=== PATIENT | female | born 2000 | race Caucasian/White ===

== ENCOUNTER 2021-05-07 11:27 | Emergency (ER) | payer OTHER ==
[~2021-05-07] VITALS: Ht 157.5 cm; Wt 59.0 kg
[2021-05-07] MEDS ORDERED: HALOPERIDOL LACTATE 5 MG/ML VIAL IV STA (11:53)
[2021-05-07] MEDS ORDERED: LACTATED RINGER'S 1,000 ML INJ ONE (12:00)
[2021-05-07] MEDS ORDERED: PROMETHAZINE 12.5MG/ NACL 0.9% 12.5 MG/50 ML BAG IV ONE (12:15)
[2021-05-07] MEDS ORDERED: Morphine 2mg Syringe 2 MG/ML SYR IV ONE (12:15)
[2021-05-07] MEDS ORDERED: Morphine 4mg Syringe 4 MG/ML INJ ONE (12:25)
[2021-05-07] MEDS ORDERED: PROMETHAZINE HCL (IM) 25 MG/ML VIAL IM ONE (12:25)
[2021-05-07] MEDS ORDERED: LACTATED RINGER'S 1,000 ML ONE (12:26)
== END 2021-05-07 13:27 | disposition home or self-care (01) ==
LOC: FSED 11:53
DX: U07.1 COVID-19 (principal); R50.9 Fever, unspecified; R11.2 Nausea with vomiting, unspecified
CPT/HCPCS: 80053; 81003; 85025; 96374; 96376; 99283; J2270; J2550; J7121

== ENCOUNTER 2021-06-30 11:57 | Emergency (ER) | payer OTHER ==
[~2021-06-30] VITALS: Ht 162.6 cm; Wt 49.9 kg
[2021-06-30] MEDS ORDERED: SODIUM CHLORIDE 0.9% 1000ML 1,000 ML IV STA (12:26)
[2021-06-30] MEDS ORDERED: FAMOTIDINE 20 MG/2 ML VIAL IV ONE ×2 (12:30→13:00)
[2021-06-30] MEDS ORDERED: SODIUM CHLORIDE 0.9% 1000ML 1,000 ML ONE (12:30)
[2021-06-30] MEDS ORDERED: METOCLOPRAMIDE HCL 10 MG/2ML VIAL ONE (12:30)
[2021-06-30] MEDS ORDERED: METOCLOPRAMIDE HCL 10 MG/2ML VIAL IV ONE (13:00)
[2021-06-30 13:02] VITALS: BP 117/78
== END 2021-06-30 13:02 | disposition home or self-care (01) ==
LOC: FSED 12:02
DX: R10.13 Epigastric pain (principal); K31.84 Gastroparesis; E86.0 Dehydration; R07.89 Other chest pain; R11.2 Nausea with vomiting, unspecified; R94.31 Abnormal electrocardiogram [ECG] [EKG]
CPT/HCPCS: 80053; 81003; 81025; 82553; 84484; 85025; 93005; 99283; J2765; J7030